=== PATIENT | female | born 1985 | race Caucasian/White ===

== ENCOUNTER 2016-06-13 10:18 | Emergency (ER) | payer OTHER ==
[~2016-06-13] VITALS: Ht 160 cm; Wt 65.0 kg
[~2016-06-13 10:18] MED LIST: AMOX500T PO; CHLO.12%30 SWISH-SPIT; DICL50TA3 PO; IBUP800T23 PO; MACR100C PO; MMW SWISH-SPIT; PENI500T PO
[2016-06-13 10:19] VITALS: BP 133/80; PULSE 123; RESP 20; TEMP 98.1; O2SAT 100
[2016-06-13] MEDS ORDERED: SODIUM CHLOR 0.9% 1000 ML INJ 1,000 ML IV ONE (10:45)
[2016-06-13] MEDS ORDERED: KETOROLAC TROMETHAMINE 30 MG/ML (IVP) VIAL IVP ONE (10:45)
[2016-06-13] MEDS ORDERED: SULFAMETHOXAZOLE-TRIMETHOPRIM DS 800-160 MG TAB PO ONE (10:45)
--- NOTE | 2016-06-13 11:06 | PD ---
HPI Chief Complaint: Skin Problem Time Seen by Provider: 10:40 Travel History International Travel<30 days: No Contact w/Intl Traveler<30days: No Traveled to known affect area: No History of Present Illness HPI 30-year-old female came to the emergency room with history of abscesses on her labia as well as left axilla. Patient says that these have been slowly getting worse in past 2-3 days. The one on her left axilla popped last night and has been draining pus. She has been getting some chills. But she is here mainly for the pain. She has never had abscesses before that needed to be drained. She was tachycardic in triage. She looks to be in pain and discomfort. Patient is otherwise a healthy person. [facility] Past Medical History Narrative Medical List of her past medical, surgical, social and family history as reviewed from the nursing note. Anxiety: Yes Kidney Stones: Yes Psychiatric: Yes (PTDS) ?: Not LMP: 05/30/16 : 4 Para: 3 Miscarriage: 1 Tubal Ligation: Yes Past Surgical History Abdominal Surgery: Yes (CSECTION / TUBAL) Section: Yes (X 2) Social History Alcohol Use: No Tobacco Use: Yes (1/2 PPD) Substance Use: No Allergies-Medications (Allergen,Severity, Reaction): Coded Allergies: No Known Allergies (Unverified , 12/13/15) Comments No known drug allergies. Reported Meds & Prescriptions Reported Meds & Active Scripts Active Bactrim DS (Sulfamethoxazole-Trimethoprim) 800-160 Mg Tab 1 Tab PO BID Narrative Medication List of her home medications reviewed from the nursing note. Review of Systems Except as stated in HPI: all other systems reviewed are Neg Physical Exam Narrative GENERAL: Awake, alert, anxious, moderate distress SKIN: Warm and dry. Extremely tender 2 x 2 centimeter abscess on the left upper extremity near the axilla. It has been draining purulent material. The right labia is swollen, erythematous, tender to touch with an open area that is also draining purulent material. It is extremely tender to touch. HEAD: Atraumatic. Normocephalic. EYES: Pupils equal and round. No scleral icterus. No injection or drainage. ENT: No nasal bleeding or discharge. Mucous membranes pink and moist. NECK: Trachea midline. No JVD. CARDIOVASCULAR: Regular rate and rhythm. No murmur appreciated. RESPIRATORY: No accessory muscle use. Clear to auscultation. Breath sounds equal bilaterally. GASTROINTESTINAL: Abdomen soft, non-tender, nondistended. Hepatic and splenic margins not palpable. MUSCULOSKELETAL: No obvious deformities. No clubbing. No cyanosis. No edema. NEUROLOGICAL: Awake and alert. No obvious cranial nerve deficits. Motor grossly within normal limits. Normal speech. PSYCHIATRIC: Appropriate mood and affect; insight and judgment normal. Data Data Last Documented VS Vital Signs Date Time Temp Pulse Resp B/P Pulse Ox O2 Delivery O2 Flow Rate FiO2 06/13/16 14:52 100 Nasal Cannula 2.00 06/13/16 10:19 98.1 123 20 133/80 Orders Basic Metabolic Panel (Bmp) (06/13/16 10:40) Complete Blood Count With Diff (06/13/16 10:40) Blood Culture (06/13/16 10:40) Wound Culture And Gram Stain (06/13/16 10:40) Ketorolac Inj (Toradol Inj) (06/13/16 10:45) Cefazolin Inj (Ancef Inj) (06/13/16 10:45) Sulfamet-Trimeth Ds 800-160 Mg (Bactrim (06/13/16 10:45) Sodium Chlor 0.9% 1000 Ml Inj (Ns 1000 M (06/13/16 10:45) Lidocaine 1% Inj (Xylocaine 1% Inj) (06/13/16 12:00) Etomidate Inj (Amidate Inj) (06/13/16 12:30) Etomidate Inj (Amidate Inj) (06/13/16 13:15) Labs Laboratory Tests Test 06/13/16 10:45 White Blood Count 11.9 TH/MM3 Red Blood Count 4.96 MIL/MM3 Hemoglobin 14.5 GM/DL Hematocrit 42.4 % Mean Corpuscular Volume 85.5 FL Mean Corpuscular Hemoglobin 29.2 PG Mean Corpuscular Hemoglobin 34.2 % Concent Red Cell Distribution Width 13.5 % Platelet Count 237 TH/MM3 Mean Platelet Volume 8.4 FL Neutrophils (%) (Auto) 71.5 % Lymphocytes (%) (Auto) 17.4 % Monocytes (%) (Auto) 9.3 % Eosinophils (%) (Auto) 1.7 % Basophils (%) (Auto) 0.1 % Neutrophils # (Auto) 8.5 TH/MM3 Lymphocytes # (Auto) 2.1 TH/MM3 Monocytes # (Auto) 1.1 TH/MM3 Eosinophils # (Auto) 0.2 TH/MM3 Basophils # (Auto) 0.0 TH/MM3 CBC Comment DIFF FINAL Differential Comment Sodium Level 139 MEQ/L Potassium Level 3.8 MEQ/L Chloride Level 107 MEQ/L Carbon Dioxide Level 25.7 MEQ/L Anion Gap 6 MEQ/L Blood Urea Nitrogen 12 MG/DL Creatinine 0.63 MG/DL Estimat Glomerular Filtration 112 ML/MIN Rate Random Glucose 92 MG/DL Calcium Level 9.5 MG/DL MDM Medical Decision Making Medical Screen Exam Complete: Yes Emergency Medical Condition: Yes Medical Record Reviewed: Yes Differential Diagnosis Disseminated staph, multiple abscesses Narrative Course 11:04 AM I have ordered blood tests. Wound culture has been collected from the drainage and sent. I have ordered IV Toradol, IV Ancef, by mouth Bactrim and IV fluid bolus. The abscess needs to be I&D. Given patient's pain tolerance it probably would be better done under some sort of sedation. However patient has 2 toddlers in the room with her children. She has called her boyfriend to come and watch them. Once he is here and the children are safely under his care I will perform the procedure. 12:23 PM blood test results are back. Patient has some leukocytosis. Chemistry looks to be within normal limit. Awaiting for conscious sedation to be started and patient will get incision and drainage under the conscious sedation. It will be done with etomidate. I will do the conscious sedation while the PA will do the incision and drainage. 1:11 PM please refer to the PAs procedure note regarding the incision and drainage. Patient will be discharged home on a prescription of Bactrim. Procedures Procedure Narrative After the risks and benefits were discussed the following procedure was performed: MODERATE SEDATION: The patient was placed on a alarm security or surveillance monitor and pulse oximetry. An ambu bag and suction was immediately available at bedside. The patient was monitored by the nurse. Oxygen saturation , heart rate and blood pressure were monitored. Procedural sedation was acheived using 20 mg of IV etomidate. The patient was observed until awake and alert. Procedural Sedation time in attendance was 20 minutes. EKG Prior to Arrival: No Diagnosis Primary Impression: Abscess of multiple sites Additional Impressions: abscess mons pubis Abscess of axilla, left Referrals: Primary Care Physician 3 days Additional Instructions: Please return in 48 hours to have the packing taken out. Take medication as per the prescription direction. Take sitz bath 4-5 times a day which would be immersing ER brought him into a warm bath water with 3-4 tablespoon of Epsom salt. This 20 minutes each time every day. Med/Other Pt SpecificInfo: Prescription(s) given Scripts Sulfamethoxazole-Trimethoprim (Bactrim DS)800-160 Mg Tab1 Tab PO BID #20 TAB Ref 0 Prov:Adolfo Kinney MD 06/13/16 Disposition: 01 DISCHARGE HOME Condition: Stable Adolfo Kinney MD Jun 13, 2016 11:06 Sulfamethoxazole-Trimethoprim (Bactrim DS)800-160 Mg Tab1 Tab PO BID #20 TAB Ref 0 Prov:Adolfo Kinney MD 06/13/16 Disposition: 01 DISCHARGE HOME Condition: Stable Adolfo Kinney MD Jun 13, 2016 11:06
[2016-06-13 11:15] LABS: AUTOMATED NEUTROPHIL # 8.5 TH/MM3 (1.8-7.7); BASOPHIL % 0.1 % (0.0-2.0); EOSINOPHIL # 0.2 TH/MM3 (0-0.4); EOSINOPHIL % 1.7 % (0.0-4.0); HEMATOCRIT 42.4 % (35.0-46.0); HEMO FLAGS DIFF FINAL; LYMPH % 17.4 % (9.0-44.0); LYMPHOCYTE # 2.1 TH/MM3 (1.0-4.8); MEAN CELL VOLUME 85.5 FL (80.0-100.0); MEAN CORPUSCULAR HEMOGLOBIN 29.2 PG (27.0-34.0); MEAN CORPUSCULAR HGB CONC 34.2 % (32.0-36.0); MONO % 9.3 % (0.0-8.0); NEUT % 71.5 % (16.0-70.0); PLATELET COUNT 237 TH/MM3 (150-450); RED BLOOD COUNT 4.96 MIL/MM3 (4.00-5.30); RED CELL DISTRIBUTION WIDTH 13.5 % (11.6-17.2); WHITE BLOOD COUNT 11.9 TH/MM3 (4.0-11.0)
[2016-06-13 11:41] LABS: BICARBONATE 25.7 MEQ/L (21.0-32.0); POTASSIUM 3.8 MEQ/L (3.5-5.1)
[2016-06-13 12:00] VITALS: O2SAT 100
[2016-06-13] MEDS ORDERED: LIDOCAINE HCL 1% 30 ML VIAL INFIL ONE (12:00)
[2016-06-13] MEDS ORDERED: ETOMIDATE 20 MG/10 ML VIAL IV PUSH ONE ×2 (12:30→13:15)
--- NOTE | 2016-06-13 13:10 | PD ---
Physical Exam Time Seen by Provider: 13:10 Narrative I was asked to perform an I&D of this patient's right labia and left axilla. My attending physician Dr. Kinney performed procedural sedation. For further details regarding the patient's visit please see the physician's documentation. Data Data Last Documented VS Vital Signs Date Time Temp Pulse Resp B/P Pulse Ox O2 Delivery O2 Flow Rate FiO2 06/13/16 10:19 98.1 123 20 133/80 100 Room Air Orders Basic Metabolic Panel (Bmp) (06/13/16 10:40) Complete Blood Count With Diff (06/13/16 10:40) Blood Culture (06/13/16 10:40) Wound Culture And Gram Stain (06/13/16 10:40) Ketorolac Inj (Toradol Inj) (06/13/16 10:45) Cefazolin Inj (Ancef Inj) (06/13/16 10:45) Sulfamet-Trimeth Ds 800-160 Mg (Bactrim (06/13/16 10:45) Sodium Chlor 0.9% 1000 Ml Inj (Ns 1000 M (06/13/16 10:45) Lidocaine 1% Inj (Xylocaine 1% Inj) (06/13/16 12:00) Etomidate Inj (Amidate Inj) (06/13/16 12:30) Etomidate Inj (Amidate Inj) (06/13/16 13:15) Labs Laboratory Tests Test 06/13/16 10:45 White Blood Count 11.9 TH/MM3 Red Blood Count 4.96 MIL/MM3 Hemoglobin 14.5 GM/DL Hematocrit 42.4 % Mean Corpuscular Volume 85.5 FL Mean Corpuscular Hemoglobin 29.2 PG Mean Corpuscular Hemoglobin 34.2 % Concent Red Cell Distribution Width 13.5 % Platelet Count 237 TH/MM3 Mean Platelet Volume 8.4 FL Neutrophils (%) (Auto) 71.5 % Lymphocytes (%) (Auto) 17.4 % Monocytes (%) (Auto) 9.3 % Eosinophils (%) (Auto) 1.7 % Basophils (%) (Auto) 0.1 % Neutrophils # (Auto) 8.5 TH/MM3 Lymphocytes # (Auto) 2.1 TH/MM3 Monocytes # (Auto) 1.1 TH/MM3 Eosinophils # (Auto) 0.2 TH/MM3 Basophils # (Auto) 0.0 TH/MM3 CBC Comment DIFF FINAL Differential Comment Sodium Level 139 MEQ/L Potassium Level 3.8 MEQ/L Chloride Level 107 MEQ/L Carbon Dioxide Level 25.7 MEQ/L Anion Gap 6 MEQ/L Blood Urea Nitrogen 12 MG/DL Creatinine 0.63 MG/DL Estimat Glomerular Filtration 112 ML/MIN Rate Random Glucose 92 MG/DL Calcium Level 9.5 MG/DL MDM Supervised Visit with KAVITHA: No Procedures Procedure Narrative After the risks and benefits were discussed the following procedure was performed: INCISION AND DRAINAGE OF LABIAL ABSCESS: The area was prepped and was sterilely draped. A subcutaneous wheal of 1 % Xylocaine with a total number 6 mL was used to anesthetize the area. The area was properly anesthetized. A number 11 scalpel was used to make a 1.5 -cm incision across the area of the abscess. Purulence was expelled. Blunt dissection used to break up any loculations. Cultures were obtained. The abscess was drained an irrigated with normal saline. Quarter inch iodoform packing was placed in the wound. Sterile dressing applied. Patient advised to have packing removed in two days. After the risks and benefits were discussed the following procedure was performed: INCISION AND DRAINAGE OF AXILLARY ABSCESS: The area was prepped and was sterilely draped. A subcutaneous wheal of 1 % Xylocaine with a total number 5 mL was used to anesthetize the area. The area was properly anesthetized. A number 11 scalpel was used to make a 1 -cm incision across the area of the abscess. Purulence was expelled. Blunt dissection used to break up any loculations. Cultures were obtained. The abscess was drained an irrigated with normal saline. Quarter inch iodoform packing was placed in the wound. Sterile dressing applied. Patient advised to have packing removed in two days. Malini Carreon Jun 13, 2016 13:10
[2016-06-13] MEDS ORDERED: BACT800T5 PO (13:13)
[2016-06-13 14:52] VITALS: O2SAT 100
== END 2016-06-13 16:31 | disposition home or self-care (01) ==
LOC: NEPC 10:18
DX: L02.215 Cutaneous abscess of perineum (principal); L02.412 Cutaneous abscess of left axilla; B95.62 Methicillin resistant Staphylococcus aureus infection as the cause of diseases classified elsewhere; F17.210 Nicotine dependence, cigarettes, uncomplicated
CPT/HCPCS: 10061; 80048; 85025; 86403; 87040; 87070; 87186; 87205; 96365; 96375; 99152; 99153; 99283; J0690; J1885; J7030

== ENCOUNTER 2016-08-21 15:10 | Emergency (ER) | payer SELFPAY ==
[~2016-08-21] VITALS: Ht 160 cm; Wt 62.0 kg
[~2016-08-21 15:10] MED LIST changes: -AMOX500T PO; +BACT800T5 PO; -CHLO.12%30 SWISH-SPIT; -DICL50TA3 PO; -IBUP800T23 PO; -MACR100C PO; -MMW SWISH-SPIT; -PENI500T PO
[2016-08-21 15:11] VITALS: BP 142/96; PULSE 117; RESP 15; TEMP 98.4; O2SAT 100
[2016-08-21] MEDS ORDERED: IBUP800T23 PO (15:33)
[2016-08-21] MEDS ORDERED: CEPH-460 PO (15:33)
[2016-08-21] MEDS ORDERED: BACT800T5 PO (15:33)
--- NOTE | 2016-08-21 15:34 | PD ---
HPI Chief Complaint: Skin Problem Time Seen by Provider: 15:30 Travel History International Travel<30 days: No Contact w/Intl Traveler<30days: No Traveled to known affect area: No History of Present Illness HPI 30-year-old female presents to the emergency Department with complaint of a possible spider bite to the back of her right leg that is painful and red with worsening 3 days. Reports subjective fever. Reports nausea without vomiting. Denies paresthesias or loss of sensation, decreased range of motion, decreased strength to the affected extremity. Has been taking 800 mg ibuprofens with minimal relief of pain. History of MRSA. Has no other medical complaints. No other modifying factors or associated signs and symptoms. PFSH Past Medical History Hx Anticoagulant Therapy: No (FACTOR v) Anxiety: Yes Kidney Stones: Yes Psychiatric: Yes (PTDS) ?: Not LMP: 08/06/16 : 4 Para: 3 Miscarriage: 1 Tubal Ligation: Yes Past Surgical History Abdominal Surgery: Yes (CSECTION / TUBAL) Section: Yes (X 2) Social History Alcohol Use: No Tobacco Use: Yes (1/2 PPD) Substance Use: No Allergies-Medications (Allergen,Severity, Reaction): Coded Allergies: *MDRO Multi-Drug Resistant Organism (Verified Adverse Reaction, Unknown, ) MRSA (arm wound) - 06/13/16 Reported Meds & Prescriptions Reported Meds & Active Scripts Active Ibuprofen 800 Mg Tab 800 Mg PO Q6HR PRN Keflex (Cephalexin) 500 Mg Cap 500 Mg PO Q8H 10 Days Bactrim DS (Sulfamethoxazole-Trimethoprim) 800-160 Mg Tab 1 Tab PO BID 10 Days Bactrim DS (Sulfamethoxazole-Trimethoprim) 800-160 Mg Tab 1 Tab PO BID Review of Systems Except as stated in HPI: all other systems reviewed are Neg Physical Exam Narrative GENERAL: Well-nourished, well-developed [-] patient, in no acute distress; afebrile, nontoxic-appearing SKIN: There is an indurated area to the posterior right thigh which measures about 0.5 cm in diameter. It is nonfluctuant and there is pointing, but no drainage. There is a zone of inflammation around it but no lymphangitis. HEAD: Atraumatic. Normocephalic EYES: Pupils equal and round. No scleral icterus. No injection or drainage. ENT: Mucosa pink and moist. Airway patent. NECK: Trachea midline. CARDIOVASCULAR: Regular rate. RESPIRATORY: No accessory muscle use. GASTROINTESTINAL: Rounded. MUSCULOSKELETAL: No obvious deformities. No clubbing. No cyanosis. No edema. NEUROLOGICAL: Awake and alert. Oriented 3. No obvious cranial nerve deficits. Motor grossly within normal limits. Normal speech. PSYCHIATRIC: Appropriate mood and affect; insight and judgment normal. Data Data Last Documented VS Vital Signs Date Time Temp Pulse Resp B/P Pulse Ox O2 Delivery O2 Flow Rate FiO2 08/21/16 15:11 98.4 117 15 142/96 100 Orders Ketorolac Inj (Toradol Inj) (08/21/16 15:45) [facility] Medical Decision Making Medical Screen Exam Complete: Yes Emergency Medical Condition: Yes Medical Record Reviewed: Yes Differential Diagnosis Cellulitis, abscess, infected insect bite Narrative Course 30-year-old female with cellulitis to posterior right thigh. Patient is afebrile and nontoxic-appearing. Heart rate recheck on physical exam is approximately 90-100 bpm. Area was marked with surgical marker. Patient has history of MRSA. Toradol administered in the ER. Keflex and Bactrim prescribed for home. Patient verbalizes understanding and agreement with treatment plan. Patient is medically cleared and stable for discharge. Discussed reasons to return to the emergency department. Instructed patient to follow up with primary care provider. Patient agrees with treatment plan. The patients vital signs are stable and the patient is stable for outpatient follow- up and treatment. Patient discharged home, stable and in no acute distress. Diagnosis Primary Impression: Cellulitis of right lower extremity Referrals: Primary Care Physician Patient Instructions: Cellulitis (ED), General Instructions Departure Forms: Tests/Procedures, Work Release Enter return to work date: Aug 23, 2016 Additional Instructions: Complete full course of antibiotics Warm compresses to the affected area Keep area clean and dry Ibuprofen or Tylenol as directed and as needed for pain and inflammation Follow-up with primary care provider Return to emergency department immediately with worsening of symptoms Med/Other Pt SpecificInfo: Prescription(s) given Scripts Ibuprofen 800 Mg [id number] Mg PO Q6HR PRN (PAIN) #30 TAB Ref 0 Prov:Malini Doherty OUTPATIENT PHARMACY MANAGER 08/21/16 Cephalexin (Keflex)500 Mg [id number] Mg PO Q8H 10 Days Ref 0 Prov:Malini Doherty OUTPATIENT PHARMACY MANAGER 08/21/16 Sulfamethoxazole-Trimethoprim (Bactrim DS)800-160 Mg Tab1 Tab PO BID 10 Days Ref 0 Prov:Malini Doherty 08/21/16 Disposition: 01 DISCHARGE HOME Condition: Stable Malini Doherty Aug 21, 2016 15:34 Malini Doherty Aug 21, 2016 15:34
[2016-08-21] MEDS ORDERED: KETOROLAC TROMETHAMINE 60 MG/2 ML (IM) VIAL IM ONE (15:45)
== END 2016-08-21 16:18 | disposition home or self-care (01) ==
LOC: NEPK 15:10
DX: L03.115 Cellulitis of right lower limb (principal); R50.9 Fever, unspecified; R11.0 Nausea; F17.200 Nicotine dependence, unspecified, uncomplicated; Z86.14 Personal history of Methicillin resistant Staphylococcus aureus infection; Z86.59 Personal history of other mental and behavioral disorders; Z87.442 Personal history of urinary calculi
CPT/HCPCS: 96372; 99284; J1885

== ENCOUNTER 2016-08-24 23:13 | Emergency (ER) | payer SELFPAY ==
[~2016-08-24 23:13] MED LIST changes: +CEPH-460 PO; +IBUP800T23 PO
[2016-08-24 23:15] VITALS: BP 126/84; PULSE 88; RESP 18; TEMP 99.1; O2SAT 100
== END 2016-08-25 01:30 | disposition left against medical advice (07) ==
LOC: NED 23:13
DX: L98.9 Disorder of the skin and subcutaneous tissue, unspecified (principal)
CPT/HCPCS: 99281